=== PATIENT | male | born 1975 | race Two or more races ===

== ENCOUNTER 2022-03-29 22:10 | Emergency (ER) | payer MEDICAID ==
[~2022-03-29] VITALS: Ht 157.5 cm; Wt 81.6 kg
[2022-03-29 23:34] VITALS: BP 140/76
[2022-03-30] MEDS ORDERED: KETOROLAC TROMETHAMINE INJ 30 MG/ML VIAL ONE (00:40)
[2022-03-30] MEDS ORDERED: KETOROLAC TROMETHAMINE INJ 30 MG/ML VIAL IM ONE (01:00)
== END 2022-03-30 00:55 | disposition home or self-care (01) ==
LOC: ER 22:12
DX: D17.79 Benign lipomatous neoplasm of other sites (principal); M25.512 Pain in left shoulder; G51.0 Bell's palsy; E78.5 Hyperlipidemia, unspecified; Z87.39 Personal history of other diseases of the musculoskeletal system and connective tissue
CPT/HCPCS: 99283; 96372; J1885